=== PATIENT | female | born 1930 | race African-American/Black ===

== ENCOUNTER 2017-04-07 15:38 | Emergency (ER) | payer MEDICARE ==
[~2017-04-07] VITALS: Ht 165.1 cm; Wt 45.0 kg
[2017-04-07 16:17] VITALS: BP 166/67
== END 2017-04-07 19:04 | disposition left against medical advice (07) ==
LOC: ER 15:38
DX: Z53.21 Procedure and treatment not carried out due to patient leaving prior to being seen by health care provider (principal)